=== PATIENT | male | born 1985 | race Caucasian/White ===

== ENCOUNTER 2018-05-24 18:31 | Emergency (ER) | payer BC ==
[~2018-05-24] VITALS: Ht 170.2 cm; Wt 61.7 kg
[2018-05-24 18:33] VITALS: BP 106/71
--- NOTE | 2018-05-24 18:33 | NUR ---
Patient to bed 8 via personal wheelchair. RN evaluating patient at bedside.
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
--- NOTE | 2018-05-24 19:08 | NUR ---
Pt report given to [facility]. Transfer of care at this time.
--- NOTE | 2018-05-24 19:14 | NUR ---
PT TAKEN TO RADIOLOGY
--- NOTE | 2018-05-24 19:50 | NUR ---
Dr. Ewing evaluating patient at bedside.
[2018-05-24 21:13] VITALS: BP 110/82
--- NOTE | 2018-05-24 21:13 | NUR ---
Patient discharged with v/s stable. Written and verbal after care instructions given and explained. Patient verbalized understanding. Ambulatory with steady gait. All questions addressed prior to discharge. Advised to follow up with PMD.
== END 2018-05-24 21:13 | disposition home or self-care (01) ==
LOC: MED 18:31
DX: R51 Headache (principal); M54.2 Cervicalgia; M25.512 Pain in left shoulder; Z88.0 Allergy status to penicillin; Z88.4 Allergy status to anesthetic agent; V89.2XXA Person injured in unspecified motor-vehicle accident, traffic, initial encounter; Y93.89 Activity, other specified; Y92.89 Other specified places as the place of occurrence of the external cause; Y99.8 Other external cause status
CPT/HCPCS: 70450; 72125; 73030; 99284; Q0092

== ENCOUNTER 2020-04-02 22:16 | Emergency (ER) | payer BC ==
[~2020-04-02] VITALS: Ht 170.2 cm; Wt 57.2 kg
--- NOTE | 2020-04-02 22:29 | NUR ---
PT TAKEN TO ER BED 9 VIA W/C
[2020-04-02 22:33] VITALS: BP 136/76
[2020-04-02] MEDS ORDERED: IBUPROFEN 600 MG TAB PO ONE (22:40)
--- NOTE | 2020-04-02 22:40 | NUR ---
ERMD BEDSIDE EVALUATING PT
[2020-04-02] MEDS ORDERED: SULFAMETH/TRIMETH DS 800/160MG 1 TAB PO ONE (22:45)
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
[2020-04-02 23:11] VITALS: BP 136/76
--- NOTE | 2020-04-02 23:11 | NUR ---
Patient discharged with v/s stable. Written and verbal after care instructions given and explained. Patient alert, oriented and verbalized understanding of instructions. Wheel Chair Assisted with steady gait. All questions addressed prior to discharge. ID band removed. Patient advised to follow up with PMD. Rx of IBUPROFEN, AND BACTRIM given. Patient educated on indication of medication including possible reaction and side effects. Opportunity to ask questions provided and answered.
== END 2020-04-02 23:11 | disposition home or self-care (01) ==
LOC: MED 22:16
DX: L03.115 Cellulitis of right lower limb (principal); Z88.0 Allergy status to penicillin; Z88.6 Allergy status to analgesic agent
CPT/HCPCS: 99283

== ENCOUNTER 2020-06-03 21:53 | Emergency (ER) | payer BC ==
[~2020-06-03] VITALS: Ht 170.2 cm; Wt 54.4 kg
[2020-06-03 22:03] VITALS: BP 120/77
--- NOTE | 2020-06-03 22:09 | NUR ---
Amadou hunter in [facility] - 06/03/20 at 2210 by [email or web address] PT AMBULATED TO BED 12 STEADY GAIT
--- NOTE | 2020-06-03 22:10 | NUR ---
35 Y/O MALE C/O 07/23 DIFFUSE SHARP ABDOMINAL PAIN X5 HOURS WITH N/V. ABD TENDER TO TOUCH. BS ACTIVE. TOOK 10 MG OXYCODONE WITH NO RELIEF. MED HX: CURRENT UTI, TOTAL GASTRECTOMY, PARALYSED BILATERAL LEGS FROM KNEE DOWN, RECONSSTRUCTIVE BACK SURGURY (2009) RX: MACROBID ALLERGIES: PENICILLINS, FENTANYL
--- NOTE | 2020-06-03 22:11 | NUR ---
ERMD AT BEDSIDE EVALUATING PT
[2020-06-03] MEDS ORDERED: NACL 0.9% 1,000 ML IV SCH (22:17)
[2020-06-03] MEDS ORDERED: ONDANSETRON 4 MG/2 ML VIAL IVP ONE (22:20)
[2020-06-03] MEDS ORDERED: MORPHINE SULFATE 4 MG/ML SYR IVP ONE ×2 (22:20→23:45)
--- NOTE | 2020-06-03 22:35 | NUR ---
PT TAKEN TO CT VIA CALLIE
[2020-06-03 22:43] LABS: HEMATOCRIT 42.3 % (36-52); HEMOGLOBIN 13.9 g/dL (12.0-18.0); MEAN CORPUSCULAR HEMOGLOBIN 30 pg (27-31); MEAN CORPUSCULAR HGB CONC 33 g/dL (33-37); MEAN CORPUSCULAR VOLUME 89.7 fL (80-94); PLATELET COUNT (AUTO) 253 K/uL (140-450); RED BLOOD CELL COUNT(AUTO) 4.71 MIL/uL (4.20-6.10); RED CELL DISTRIBUTION WIDTH 13.7 % (11.6-13.7); WHITE BLOOD COUNT (AUTO) 8.1 K/uL (4.8-10.8)
--- NOTE | 2020-06-03 22:50 | NUR ---
URINE SPECIMEN TAKEN TO LAB
[2020-06-03 23:03] LABS: ALBUMIN 4.2 g/dL (3.4-5.0); CARBON DIOXIDE 22.9 mmol/L (21-32); CREATININE 0.9 mg/dL (0.6-1.3); POTASSIUM 3.9 mmol/L (3.5-5.1); TOTAL BILIRUBIN 0.4 mg/dL (0.0-1.0)
[2020-06-03 23:09] LABS: LYMPHOCYTES % (MANUAL) 8 % (20-46); MONOCYTES % (MANUAL) 5 % (5-12)
[2020-06-03 23:23] LABS: APPEARANCE,URINE CLEAR (CLEAR); BILIRUBIN,URINE NEGATIVE (NEGATIVE); BLOOD, URINE TRACE-I (NEGATIVE); COLOR,URINE YELLOW (YELLOW); LEUKOCYTE ESTERASE ,URINE NEGATIVE (NEGATIVE); NITRITE, URINE NEGATIVE (NEGATIVE); UGLUCOSE NEGATIVE (NEGATIVE)
--- NOTE | 2020-06-03 23:26 | NUR ---
ERMD AT BEDSIDE EVALUATING PT
[2020-06-03] MEDS ORDERED: DICYCLOMINE HCL LIQUID 10 MG/5 ML UDC ONE (23:30)
[2020-06-03] MEDS ORDERED: DICYCLOMINE HCL LIQUID 20 MG, ALUMINUM HYD/MAG/SIMETHICONE 30 ML, LIDOCAINE VISCOUS 2% ... PO ONE ×3 (23:30)
[2020-06-03] MEDS ORDERED: LIDOCAINE VISCOUS 2% 20 ML UDC ONE (23:30)
[2020-06-03] MEDS ORDERED: ALUMINUM HYD/MAG/SIMETHICONE 30 ML UDC ONE ×2 (23:30→23:32)
[2020-06-04 00:20] VITALS: BP 110/78
--- NOTE | 2020-06-04 00:21 | NUR ---
Patient discharged with v/s stable. Written and verbal after care instructions given and explained. Patient verbalized understanding. Pt assisted with wheelchair tohis car accompanied by her ex-gf. All questions addressed prior to discharge. Advised to follow up with PMD.
== END 2020-06-04 00:21 | disposition home or self-care (01) ==
LOC: MED 21:53
DX: R10.9 Unspecified abdominal pain (principal); G82.20 Paraplegia, unspecified; Z88.0 Allergy status to penicillin; Z88.6 Allergy status to analgesic agent; Z98.1 Arthrodesis status; Z90.3 Acquired absence of stomach [part of]; Z96.0 Presence of urogenital implants
CPT/HCPCS: 36415; 74176; 80053; 81001; 83690; 85025; 87086; 87186; 96361; 96374; 96375; 96376; 99284; J2270; J2405; J7030